=== PATIENT | female | born 1930 | race Caucasian/White ===

== ENCOUNTER 2019-09-09 17:08 | Inpatient (IN) | payer MEDICARE, OTHER ==
[~2019-09-09 17:08] MED LIST: Iopamidol-370 76% 500 ML 1 ML ONE
--- NOTE | 2019-09-09 17:24 | CT ---
CT Brain WO Con: 09/09/2019 12:00 AM CLINICAL HISTORY: Level 1 stroke alert for left-sided weakness. IMAGING TECHNIQUE: Multiple CT images were obtained of the brain without IV contrast. COMPARISON: None. FINDINGS: Motion artifact slightly limits image detail. Brain: No acute infarct or hemorrhage is demonstrated. There is mild chronic small vessel white jasiel er ischemic change. There is mild generalized cerebral atrophy. Ventricles: Normal. No hydrocephalus.. Skull: Intact.. Visualized Paranasal sinuses: Clear.. Mastoid air cells:Clear. Extracranial soft tissues:Normal. IMPRESSION: No acute intracranial abnormality. Findings called to Dr. Colón at 5:20 PM on September 09, 2019.
--- NOTE | 2019-09-09 17:42 | CT ---
CTA of the head with IV contrast and 3-D reformatted imaging. CTA of the neck with IV contrast and 3-D reformatted imaging. INDICATION: Left-sided weakness COMPARISON: CT the brain dated September 09, 2019 FINDINGS: CTA OF THE HEAD WITH CONTRAST: CTA OF THE BRAIN: Right ICA: Patent. Right MCA: There is partially occlusive high-grade stenosis involving the distal right M1 segment bes t seen on image [address] a series of the brain Right BLANE: Patent. ACOM: Patent. Left ICA: Patent. Left MCA: Patent. Left BLANE: Patent. PCOMs: Patent. Vertebral arteries: Patent. Basilar Artery: Patent. facility coordinator: Patent. Incidentals: None. CTA OF THE NECK WITH CONTRAST: Right CCA: Patent. Right ICA: Patent. Right Subclavian: Patent. Right Vertebral Artery: Patent. Left CCA: Patent. Left ICA: Patent. Left Subclavian: Patent. Left Vertebral Artery: Left vertebral artery is dominant. Aerodigestive tract: There is moderate gaseous distention of the esophagus. Parotids/Submandibular/Thyroid glands: Thyroid gland is heterogeneous. Submandibular and parotid gla nds appear within normal limits. Lymph nodes: No pathologically enlarged lymph nodes. Lung Apices: Clear. Bones: No acute osseous abnormality. Incidentals: None. IMPRESSION: 1. Hemodynamically significant stenosis due to a partially occlusive thrombus in the right distal M1 segment. Findings called to Dr. Colón at 5:38 PM on September 09, 2019.
[2019-09-09] MEDS ORDERED: Labetalol HCl 100 MG/20 ML VIAL ONE (17:45)
[2019-09-09 17:52] LABS: #Eosinphils 0.1 thou/uL (0.0-0.7); #Lymphocytes 1.3 thou/uL (1.20-3.40); #Monocytes 0.6 thou/uL (0.11-0.59); #Neutrophils 3.8 thou/uL (1.40-6.50); %Basophils 0.4 % (0.0-1.0); %Eosinophils 1.9 % (0.0-10.0); %Lymphocytes 22.9 % (21.0-51.0); %Monocytes 9.6 % (0.0-10.0); %Neutrophils 65.2 % (42.0-75.0); Hemoglobin 11.5 g/dL (12.0-16.0); Mean Corpuscular HGB CONC 35.3 g/dL (32.0-36.0); Mean Corpuscular Hemoglobin 33.3 pg (27.0-31.0); Mean Corpuscular Volume 94.6 fL (78.0-98.0); Mean Platelet Volume 7.2 fL (7.4-10.4); Platelet Count 195 thou/uL (130-400); Red Blood Cell (RBC) Count 3.44 mill/uL (4.20-5.40); White Blood Cell (WBC) Count 5.8 thou/uL (4.8-10.8)
[2019-09-09 18:01] LABS: PTT 62.7 SEC (22.9-36.1); Prothrombin Time 40.5 SEC (12.0-14.7)
[2019-09-09 18:03] LABS: INR-International Normal Ratio 4.3
[2019-09-09 18:07] LABS: ALT (SGPT) 13 U/L (8-55); AST (SGOT) 20 U/L (5-34); Albumin 3.3 g/dL (3.4-4.8); Alkaline Phosphatase 63 U/L (40-110); Anion Gap 11 mmol/L (10-20); BUN (Urea Nitrogen) 18 mg/dL (9.8-20.1); Bilirubin, Total 0.4 mg/dL (0.2-1.2); Calc. Creatinine Clearance 0 mL/min (70-130); Carbon Dioxide 25 mmol/L (23-31); Chloride 105 mmol/L (98-107); Estimated GFR-MDRD 71; Globulin 2.7 g/dL (2.4-3.5); Glucose 165 mg/dL (83-110); Potassium 3.7 mmol/L (3.5-5.1); Sodium 137 mmol/L (136-145)
--- NOTE | 2019-09-09 18:58 | RAD ---
Chest AP view INDICATION: Left-sided CVA COMPARISON: March 27, 2005 FINDINGS: Lungs:The lungs are clear Cardiac silhouette:There is mild cardiomegaly Pulmonary vasculature:Normal Pleural spaces:No pleural effusion or pneumothorax is demonstrated. Upper abdomen:No abnormality seen. Osseous structures: There is scattered degenerative and osteoarthritic change present. No acute fract ure or subluxation demonstrated. Additional findings:There is a dual-lead pacemaker overlying the left chest wall. IMPRESSION: Mild cardiomegaly without evidence of cardiac decompensation.
--- NOTE | 2019-09-09 20:12 | HP ---
PRIMARY CARE PHYSICIAN: Dr. Redman at [facility]. CHIEF COMPLAINT: Left hand weakness. HISTORY OF PRESENT ILLNESS: Ms. Ramos is a very pleasant 89-year-old female, who has a history of atrial fibrillation and hypertension. She lives independently and about 4:16 pm, she says that she was sitting in her recliner and noticed that she could not use her left hand. She says she tried to work with it for a little bit on her own, but realized it was not getting any better, so she called her granddaughter who was on speed dial. She says her purse was within reach and she called using her cellphone. Her granddaughter called 911 and she was brought to the hospital via EMS. She says she was not sure if her leg was weak as she was too afraid to try to stand up. She also recently had sprained her ankle and her leg was in a boot. Her granddaughter noticed that her voice sounded a little bit different like her mouth was extremely dry and the patient noticed some drooling as well. She denied any chest pain or shortness of breath and no visual changes. She was brought to the ER and a CT scan of the brain was done, which was negative for an acute stroke. A CT angiogram was done, which showed an acute partially occlusive thrombus in the distal M1 segment on the right. Neurosurgery was consulted, but since her symptoms were improving, the decision was made not to try to pursue a thrombectomy. She is being admitted for further treatment. The patient says that about in 2000, she had an episode where she had sudden vision loss in the right eye and she was admitted for a TIA workup. At that time, her vision improved on its own, they did not find any problems at that time and she was discharged. She says that ever since then she has not had any symptoms like this. REVIEW OF SYSTEMS: All systems were reviewed and are negative except for that mentioned in the history of present illness. PAST MEDICAL HISTORY: Significant for atrial fibrillation, history of transient ischemic attack, hypertension. She has a history of macular degeneration as well as tremors. PAST SURGICAL HISTORY: She has had a pacemaker placed. ALLERGIES: CODEINE, WHICH CAUSES NAUSEA WELL CIPRO, BUT SHE DOES NOT REMEMBER THE REACTION. SOCIAL HISTORY: She lives alone. She has 2 children. She walks with a cane or a walker. She is a nonsmoker and nondrinker and as far as code status, she says she does not want to be resuscitated and would like to be a DNAR. FAMILY HISTORY: Significant for cancer and angina in her father and a brother who had Lewy body dementia. CURRENT MEDICATIONS: 1. Warfarin. 2. Digoxin. 3. Primidone. 4. Vitamin D3. 5. Fish oil. 6. Turmeric. 7. vitamin. PHYSICAL EXAMINATION: GENERAL: She is alert and oriented. She appears to be in no acute distress. She is well developed and well nourished. VITAL SIGNS: Blood pressure was 175/82, heart rate 80, respiratory rate of 21, temperature is 97.9. HEENT: Her pupils are equal, round, and reactive to light. Extraocular muscles are intact. Her sclerae anicteric. Throat, there is no erythema, no exudates. NECK: There is no adenopathy, no bruits. LUNGS: Clear to auscultation. There is no wheezing, no rales, no rhonchi. CARDIOVASCULAR: She has a normal S1 and S2. There is no S3 or S4. No murmurs, clicks, or rubs. ABDOMEN: Soft. It is nontender and nondistended. Positive for bowel sounds. No rebound. No guarding. No organomegaly. EXTREMITIES: She has 1+ pedal edema, the left is greater than the right, but no calf tenderness. No joint effusions. NEUROLOGICAL: Her cranial nerves 2 through 12 are intact with the exception of a mild facial droop. Her muscle strength in the left upper extremity is 5/5, but weaker on the left than on the right. 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 On the lower extremity, it is again 5/5 on both the right and the left, but slightly weaker on the left. SKIN AND INTEGUMENT: No skin changes. No rashes. LABORATORY RESULTS: Her white blood cell count is 5.8, hemoglobin 11.5, hematocrit is 32.5, and platelet count is 195. INR is 4.3. Chemistries; sodium is 137, potassium 3.7, chloride 105, CO2 is 25, BUN of 18, creatinine 0.77, glucose is 165. Troponin is 0.011. CT scan of the brain, again there are no acute intracranial abnormalities and CTA of the [place] demonstrated hemodynamically significant stenosis due to partially occlusive thrombus in the right distal M1 segment. EKG is paced rhythm. ASSESSMENT: 1. This is a pleasant 89-year-old female, who presents to the ER with the sudden onset of left upper extremity weakness, likely this is due to a stroke and due to a thrombotic event. She will be admitted to the stroke floor. We will be holding Coumadin due to the supratherapeutic INR, but we will not give vitamin K. There is no evidence of any bleeding and we would like for her INR to slowly drift back toward therapeutic. We will hold off on any aspirin at this time. We will allow for some permissive hypertension and we will also a check an echocardiogram. Monitor her on telemetry. Get a lipid panel and Neurology consult. 2. Hypertension. Again allow permissive hypertension within the first 24 to 48 hours. 3. Atrial fibrillation. Her heart rate is currently stable. It appears to be primarily a paced rhythm and once again, we will allow her INR to slowly drift back toward therapeutic and hold her Coumadin. Otherwise, further recommendations to follow. Job ID: [id number]
[2019-09-09] MEDS ORDERED: Famotidine 20 MG TAB PO SCH (21:00)
[2019-09-09] MEDS ORDERED: hydrALAZINE 20 MG/ML VIAL SLOW IVP PRN (21:18)
[2019-09-09] MEDS ORDERED: Labetalol HCl 100 MG/20 ML VIAL SLOW IVP PRN (21:18)
[2019-09-09] MEDS: Acetaminophen 325 MG TAB PO PRN (21:51)
[2019-09-09 22:29] VITALS: BMI 25.5
[2019-09-10] MEDS: Acetaminophen 325 MG TAB PO PRN ×2 (04:50→20:56)
[2019-09-10 05:15] LABS: #Basophils 0.1 thou/uL (0.0-0.2); #Eosinphils 0.1 thou/uL (0.0-0.7); #Lymphocytes 2.1 thou/uL (1.20-3.40); #Monocytes 0.7 thou/uL (0.11-0.59); #Neutrophils 4.2 thou/uL (1.40-6.50); %Basophils 1.2 % (0.0-1.0); %Eosinophils 1.4 % (0.0-10.0); %Lymphocytes 29.1 % (21.0-51.0); %Monocytes 9.4 % (0.0-10.0); %Neutrophils 58.9 % (42.0-75.0); Hemoglobin 11.6 g/dL (12.0-16.0); Mean Corpuscular HGB CONC 34.1 g/dL (32.0-36.0); Mean Corpuscular Hemoglobin 31.7 pg (27.0-31.0); Mean Corpuscular Volume 93.1 fL (78.0-98.0); Platelet Count 206 thou/uL (130-400); RBC Distribution Width 10.9 % (11.5-14.5); Red Blood Cell (RBC) Count 3.65 mill/uL (4.20-5.40); White Blood Cell (WBC) Count 7.1 thou/uL (4.8-10.8)
[2019-09-10 05:22] LABS: Prothrombin Time 38.8 SEC (12.0-14.7)
[2019-09-10 05:34] LABS: Anion Gap 10 mmol/L (10-20); BUN (Urea Nitrogen) 12 mg/dL (9.8-20.1); Calc. Creatinine Clearance 53 mL/min (70-130); Calcium 9.3 mg/dL (7.8-10.44); Carbon Dioxide 28 mmol/L (23-31); Cardiac Risk 3.8 (Less than 4.5); Chloride 107 mmol/L (98-107); Cholesterol 157 mg/dl (< 200 Desired); Estimated GFR-MDRD 76; Glucose 107 mg/dL (83-110); HDL Cholesterol 41 mg/dL (>60 Neg Risk); LDL Cholesterol, Calculated 95 mg/dL; Potassium 3.6 mmol/L (3.5-5.1); Sodium 141 mmol/L (136-145); Triglycerides 106 mg/dL (Less than 150)
[2019-09-10] MEDS: Digoxin 0.125 MG TAB PO SCH (08:22)
[2019-09-10] MEDS: Famotidine 20 MG TAB PO SCH (08:23)
--- NOTE | 2019-09-10 11:56 | PDOC.HOSPP ---
- Subjective Encounter Date: 09/10/19 Encounter Time: 11:54 Subjective: Ms. Ramos was seen today in follow-up of CVA. She notes that her strength is better in her left hand. She is able to pick up man some items. She still has some trouble making it go where she wants. - Objective Vital Signs & Weight: Vital Signs (12 hours) Temp Pulse Resp BP Pulse Ox 09/10/19 08:22 82 09/10/19 08:00 97.6 F 80 14 175/79 H 96 09/10/19 03:50 97.6 F 81 18 188/81 H 99 09/10/19 00:00 95 Weight Weight 139 lb 9.6 oz Result Diagrams: 09/10/19 05:02 09/10/19 05:02 Hospitalist ROS - Medication Medications: Active Medications Generic Name Dose Route Start Last Admin Trade Name Freq PRN Reason Stop Dose Admin Acetaminophen 650 mg 09/09/19 21:18 09/10/19 04:50 Tylenol PO 650 mg Q4H PRN Administration Headache/Fever/Mild Pain (1-3) Cholecalciferol 1,000 units 09/10/19 09:00 09/10/19 08:22 Vitamin D3 PO 1,000 units DAILY SMITH Administration Digoxin 0.125 mg 09/10/19 09:00 09/10/19 08:22 Lanoxin PO 0.125 mg DAILY SMITH Administration Famotidine 20 mg 09/10/19 09:00 09/10/19 08:23 Pepcid PO 20 mg DAILY SMITH Administration - Exam Eye: PERRL Heart: RRR, no murmur, no gallops, no rubs, normal peripheral pulses Respiratory: CTAB, no wheezes, no rales, no ronchi, normal chest expansion Gastrointestinal: soft, non-tender, non-distended, normal bowel sounds, no palpable masses, no hepatomegaly Extremities: no cyanosis, no clubbing, no edema Neurological: cranial nerve grossly intact (Left upper extremity weakness, improved from last night, improved pot fluxer strength) Musculoskeletal: normal tone Psychiatric: normal affect, normal behavior, A&O x 3 Hosp A/P (1) Acute CVA (cerebrovascular accident) Code(s): I63.9 - CEREBRAL INFARCTION, UNSPECIFIED Status: Acute (2) Atrial fibrillation Code(s): I48.91 - UNSPECIFIED ATRIAL FIBRILLATION Status: Chronic - Plan * Acute CVA with left upper extremity weakness- continue PT/OT * AFIB- she is on coumadin- her INR is supratherapeutic- will continue to hold * She is unable to have an MRI * Echo has been cancelled, she had a recent one at [facility], and this was reviewed via- "my chart" EF was normal- approximately 55%, and Left atrium was mildly enlarged. * she will likely need inpatient Rehab- so will consult case management to screen.
--- NOTE | 2019-09-10 13:24 | CON ---
DATE OF TELEMEDICINE CONSULTATION: 09/10/2019 CHIEF COMPLAINT: Left arm weakness. HISTORY OF PRESENT ILLNESS: The patient is an 89-year-old lady with left hand weakness. The patient reports her strength returned somewhat. She had tingling at the tips of her fingers. She also had mild slurred speech. There was no weakness of the left leg. She had a prior TIA. She is not on aspirin. She is on Coumadin. She was seen by Dr. Myles at the last admission. She also has a cardiac pacemaker at this time. PREVIOUS MEDICAL HISTORY: Significant for TIA in the past, cardiac dysrhythmia requiring pacemaker with atrial fibrillation. She has macular degeneration and essential tremor. She also has hypertension. SURGICAL HISTORY: Pacemaker implantations. ALLERGIES: SHE IS ALLERGIC TO CODEINE, WHICH CAUSES NAUSEA AND ALLERGIC TO CIPRO WELL. SOCIAL HISTORY: She lives alone. She has 2 children who look after her as well. She walks with a cane or walker. Nonsmoker. No alcohol. FAMILY HISTORY: Her father had cancer, at 82. Brother at 90 from Lewy body dementia. Mother at 97. She fell and broke her hip. Father and brother had tremor. Her children are 68 and 65, do not have tremor. MEDICATIONS: At home, she is on 1. Coumadin. 2. Digoxin. 3. Primidone. 4. Vitamin D3. 5. Fish oil. 6. Turmeric. 7. vitamins. REVIEW OF SYSTEMS: PULMONARY: Negative for cough or shortness of breath. GI: Negative for any nausea, vomiting, or diarrhea. CARDIAC: Negative for chest pain, but positive for atrial fibrillation. GENITOURINARY: Negative for any bladder problem. DERMATOLOGIC: Negative for any skin rash. LABORATORY DATA: White count 7.1, hemoglobin 11.6, hematocrit 34.0, and platelet count 206. Chemistry: Sodium 141, potassium 3.6, chloride 107, bicarb 28, BUN 12, creatinine 0.72, glucose 107. Lipid profile is within normal limits. Coagulation: PT 38.8, INR is 4, PTT 62.7. PHYSICAL EXAMINATION: GENERAL: Well-built, well-nourished, elderly lady who is comfortable in bed and surrounded by family. VITAL SIGNS: Temperature 97.6, pulse 80, respiratory rate 16, O2 sats 98%, blood pressure 166/64. CHEST: Clear vesicular breathing. CARDIOVASCULAR: S1, S2 heard. No murmurs. ABDOMEN: Soft and nontender. No organomegaly noted NEUROLOGICAL: Higher intellectual functions. Normal orientation to time, place , and person. Appropriate conversation. Cranial nerves 2 to 12: Pupils 2 mm, reactive to light bilaterally. Normal sensation of face bilaterally. No facial asymmetry noted. Tongue midline. No atrophy noted. Normal hearing bilaterally. Normal elevation of palate. Motor exam: Bulk normal. Tone normal. Strength 5 /5 throughout except for the left upper extremity. In the left upper extremity she has mild weakness of the left deltoid 4/5. Muscle groups tested are deltoid, biceps , triceps, wrist extension and flexion, finger extension and flexion, and iliopsoas, hamstrings, quadriceps, ankle dorsiflexion and plantar flexion bilaterally. Deep tendon reflexes 3+. Of note, in motor examination we also found wasting of the small muscles of the hand in the left upper extremity. Cerebellar normal. Sensory normal. IMPRESSION: The patient is an elderly lady who developed left hand weakness and comes into the hospital. Her CT of the head did not show any acute strokes and her CT angiogram was reviewed and she had a slight narrowing in M1 segment, stenosis on the right side and examination shows left arm weakness with small muscle wasting of the left hand and I do think this lady might have had a small cerebrovascular accident but we also need to rule out any peripheral issues such as C-spine stenosis. RECOMMENDATIONS: I am not sure if the pacemaker is compatible with an MRI and MRI will clarify whether she had an acute stroke. If MRI is not possible to obtain, please consider having her see Dr. Myles as outpatient and he can do EMG nerve conduction studies at the later stage. For stroke prophylaxis please add aspirin 81 mg. Job ID: [id number] [facility]
[2019-09-10] MEDS ORDERED: hydrALAZINE 20 MG/ML VIAL SLOW IVP PRN (16:27)
[2019-09-10] MEDS ORDERED: Labetalol HCl 100 MG/20 ML VIAL SLOW IVP PRN (16:28)
[2019-09-10] MEDS ORDERED: Amlodipine 5 MG TAB PO SCH (16:30)
[2019-09-10] MEDS: Primidone 50 MG TAB PO SCH (20:52)
[2019-09-11 05:38] LABS: INR-International Normal Ratio 2.8; Prothrombin Time 29.5 SEC (12.0-14.7)
[2019-09-11] MEDS: Famotidine 20 MG TAB PO SCH (08:56)
[2019-09-11] MEDS: Amlodipine 5 MG TAB PO SCH (08:56)
[2019-09-11] MEDS: Digoxin 0.125 MG TAB PO SCH (09:00)
[2019-09-11] MEDS: Acetaminophen 325 MG TAB PO PRN (11:56)
--- NOTE | 2019-09-11 14:19 | PDOC.HOSPP ---
- Subjective Encounter Date: 09/11/19 Encounter Time: 14:17 Subjective: Ms. Ramos was seen today in follow-up of acute CVA with Left sided weakness. She notes improved strength in her hand. No new complaints. - Objective Vital Signs & Weight: Vital Signs (12 hours) Temp Pulse Pulse Pulse Resp BP BP 09/11/19 11:40 97.5 F L 78 20 09/11/19 09:57 80 81 164/76 H 09/11/19 09:00 85 09/11/19 08:56 78 143/74 H 09/11/19 07:45 97.4 F L 78 20 09/11/19 04:00 98.0 F 80 16 BP BP Pulse Ox 09/11/19 11:40 166/74 H 97 09/11/19 09:57 206/93 H 09/11/19 09:00 09/11/19 08:56 09/11/19 07:45 143/74 H 97 09/11/19 04:00 144/98 H 97 Weight Weight 139 lb 9.6 oz I&O: 09/10/19 09/11/19 09/12/19 06:59 06:59 06:59 Intake Total 720 Output Total 2500 Balance -1780 Result Diagrams: 09/10/19 05:02 09/10/19 05:02 Hospitalist ROS - Medication Medications: Active Medications Generic Name Dose Route Start Last Admin Trade Name Freq PRN Reason Stop Dose Admin Acetaminophen 650 mg 09/09/19 21:18 09/11/19 11:56 Tylenol PO 650 mg Q4H PRN Administration Headache/Fever/Mild Pain (1-3) Amlodipine Besylate 5 mg 09/11/19 09:00 09/11/19 08:56 Norvasc PO 5 mg DAILY SMITH Administration Cholecalciferol 1,000 units 09/10/19 09:00 09/11/19 08:56 Vitamin D3 PO 1,000 units DAILY SMITH Administration Digoxin 0.125 mg 09/10/19 09:00 09/11/19 09:00 Lanoxin PO 0.125 mg DAILY SMITH Administration Famotidine 20 mg 09/10/19 09:00 09/11/19 08:56 Pepcid PO 20 mg DAILY SMITH Administration Hydralazine HCl 10 mg 09/10/19 16:27 09/10/19 19:06 Apresoline SLOW IVP 10 mg Q4H PRN Administration SBP Greater Than 170 Primidone 25 mg 09/10/19 21:00 09/10/19 20:52 Mysoline PO 25 mg HS SMITH Administration Sodium Chloride 10 ml 09/09/19 21:18 09/10/19 20:53 Flush - Normal Saline IVF 10 ml PRN PRN Administration Saline Flush - Exam Eye: PERRL Heart: RRR, no murmur, no gallops, no rubs, normal peripheral pulses Respiratory: CTAB, no wheezes, no rales, no ronchi, normal chest expansion Gastrointestinal: soft, non-tender, non-distended, normal bowel sounds, no palpable masses, no hepatomegaly Extremities: no cyanosis, no edema Neurological: no new deficit (+ mild left upper extremity weakness) Hosp A/P (1) Acute CVA (cerebrovascular accident) Code(s): I63.9 - CEREBRAL INFARCTION, UNSPECIFIED Status: Acute (2) Atrial fibrillation Code(s): I48.91 - UNSPECIFIED ATRIAL FIBRILLATION Status: Chronic - Plan * Acute CVA with left upper extremity weakness- continue PT/OT * AFIB- she is on coumadin-INR is now 2.8- will give a low dose of coumadin in hopes that she will not drop below therapeutic * HTN-blood pressure is elevated- will add Amlodipine * Awaiting Rehab screen
[2019-09-11] MEDS ORDERED: Warfarin Sodium 2 MG TAB PO SCH ×2 (18:45→19:00)
[2019-09-11] MEDS: Primidone 50 MG TAB PO SCH (21:33)
[2019-09-12 04:52] LABS: Prothrombin Time 22.2 SEC (12.0-14.7)
[2019-09-12] MEDS: TURMERIC PO SCH ×2 (07:13→07:18)
[2019-09-12] MEDS: Digoxin 0.125 MG TAB PO SCH (08:37)
[2019-09-12] MEDS: Amlodipine 5 MG TAB PO SCH (08:39)
[2019-09-12] MEDS: Famotidine 20 MG TAB PO SCH (08:40)
--- NOTE | 2019-09-12 12:46 | PDOC.HOSPP ---
- Subjective Encounter Date: 09/12/19 Encounter Time: 12:45 Subjective: Ms. Ramos was seen today in followup of acute CVA. She notes that the strength in her hand has improved. She still has difficulty placing it where she wants. - Objective Vital Signs & Weight: Vital Signs (12 hours) Temp Pulse Pulse Pulse Resp BP BP 09/12/19 11:33 98.0 F 80 14 09/12/19 11:30 80 141/67 H 09/12/19 09:45 80 80 172/77 H 09/12/19 08:39 80 147/72 H 09/12/19 08:37 92 09/12/19 07:38 97.8 F 80 14 09/12/19 04:14 80 09/12/19 03:10 97.9 F 82 18 BP BP Pulse Ox Pulse Ox 09/12/19 11:33 141/67 H 97 09/12/19 11:30 97 09/12/19 09:45 148/69 H 09/12/19 08:39 09/12/19 08:37 09/12/19 07:38 147/72 H 97 09/12/19 04:14 148/82 H 09/12/19 03:10 173/79 H 98 Weight Weight 139 lb 9.6 oz I&O: 09/11/19 09/12/19 09/13/19 06:59 06:59 06:59 Intake Total 720 120 Output Total 2500 1100 Balance -2970 980 Result Diagrams: 09/10/19 05:02 09/10/19 05:02 Hospitalist ROS - Medication Medications: Active Medications Generic Name Dose Route Start Last Admin Trade Name Evan PRN Reason Stop Dose Admin Acetaminophen 650 mg 09/09/19 21:18 09/11/19 11:56 Tylenol PO 650 mg Q4H PRN Administration Headache/Fever/Mild Pain (1-3) Amlodipine Besylate 5 mg 09/11/19 09:00 09/12/19 08:39 Norvasc PO 5 mg DAILY SMITH Administration Cholecalciferol 1,000 units 09/10/19 09:00 09/12/19 08:40 Vitamin D3 PO 1,000 units DAILY SMITH Administration Digoxin 0.125 mg 09/10/19 09:00 09/12/19 08:37 Lanoxin PO 0.125 mg DAILY SMITH Administration Famotidine 20 mg 09/10/19 09:00 09/12/19 08:40 Pepcid PO 20 mg DAILY SMITH Administration Hydralazine HCl 10 mg 09/10/19 16:27 09/10/19 19:06 Apresoline SLOW IVP 10 mg Q4H PRN Administration SBP Greater Than 170 Primidone 25 mg 09/10/19 21:00 09/11/19 21:33 Mysoline PO 25 mg HS SMITH Administration - Exam Eye: PERRL Heart: RRR, no murmur, no gallops, no rubs, normal peripheral pulses Respiratory: CTAB, no wheezes, no rales, no ronchi, normal chest expansion, no tachypnea, normal percussion Gastrointestinal: soft, non-tender, non-distended, normal bowel sounds, no palpable masses, no hepatomegaly Extremities: no cyanosis, no edema Hosp A/P (1) Acute CVA (cerebrovascular accident) Code(s): I63.9 - CEREBRAL INFARCTION, UNSPECIFIED Status: Acute (2) Atrial fibrillation Code(s): I48.91 - UNSPECIFIED ATRIAL FIBRILLATION Status: Chronic - Plan * Acute CVA with left upper extremity weakness- continue PT/OT She is slowly improving * AFIB- she is on coumadin-INR is now 2.0- will re-start her home dose of coumadin, and add aspirin as recommended by the Neurologist * Will also re-start Lipitor , and Fish oil * HTN-blood pressure is trending down- continue Amlodipine * Awaiting Rehab screen
--- NOTE | 2019-09-12 13:44 | PQF ---
LAKESHIA BENNETT TONI MD [id number] CLINICAL DOCUMENTATION IMPROVEMENT CLARIFICATION FORM: ICD-10 Updated PLEASE DO AN ADDENDUM TO THE PROGRESS NOTE WITH ANY DOCUMENTATION UPDATES OR ADDITIONS AND CARRY THROUGH TO DC SUMMARY. THANK YOU. DATE: 09/12/19 ATTN: Dr. Rivas Please exercise your independent, professional judgment in responding to the clarification form. Clinical indicators are provided on the bottom of this form for your review Please check appropriate box(s): [ ] Coagulopathy [ X ] Coagulopathy due to Coumadin [ ] Other diagnosis [ ] Unable to determine In addition, please specify: Present on Admission (POA): [ X ] Yes [ ] No [ ] Unable to determine For continuity of documentation, please document condition throughout progress notes and discharge summary. Thank You. CLINICAL INDICATORS - SIGNS / SYMPTOMS / LABS / RESULTS AND LOCATION IN EMR "Supratherapeutic INR" per 09/09 H&P(Rob) 09/09 INR 4.3; 09/10 INR 4.0; 09/11 INR 2.8; 09/12 INR 2.0 per labs RISK FACTORS / RESULTS AND LOCATION IN EMR "Atrial fibillation" per 09/09 H&P (Rob) TREATMENTS / RESULTS AND LOCATION IN EMR Hold Coumadin 09/09 -09/11 per orders Daily INR 09/09 to date per orders (This form is maintained as a part of the permanent medical record) 2014 [email or web address], [email or web address] All Rights Reserved Leah Hale RN, BSN, CCDS [email or web address]
[2019-09-12 16:14] VITALS: BP 154/69; TEMP 98.2
[2019-09-12] MEDS ORDERED: Warfarin Sodium 3 MG TAB PO SCH (17:00)
[2019-09-12] MEDS ORDERED: Warfarin Sodium 2 MG TAB PO SCH (17:00)
[2019-09-12] MEDS: Primidone 50 MG TAB PO SCH (20:05)
--- NOTE | 2019-09-13 04:20 | DIS ---
DATE OF ADMISSION: 09/09/2019 DATE OF DISCHARGE: 09/12/2019 PRIMARY CARE PHYSICIAN: Dr. Tong Redman. DISCHARGE DISPOSITION: To inpatient rehab. DISCHARGE DIAGNOSES: 1. Acute cerebrovascular accident with left-sided left arm weakness. 2. Atrial fibrillation. 3. Hypertension. 4. History of macular degeneration. 5. Benign essential tremor. DISCHARGE MEDICATIONS: Include; 1. Aspirin 81 mg daily. 2. Lipitor 40 mg daily. 3. Norvasc 5 mg p.o. daily. 4. Coumadin 4.5 mg daily except for Mondays and Wednesdays, which is 3 mg. 5. Turmeric extract one tablet daily. 6. Primidone 25 mg at bedtime. 7. Fish oil 1000 mg p.o. daily. 8. Digoxin 0.125 mg p.o. daily. 9. Vitamin D3 at 1000 units p.o. daily. PROCEDURES DONE DURING THE ADMISSION: The patient had a CT scan of the brain which was negative for any acute intracranial abnormalities. The patient had a CT of the [place] angiogram showing a partially-occlusive thrombus in the right distal M1 segment. CODE STATUS: Full code. ALLERGIES: TO CIPROFLOXACIN AND CODEINE. HOSPITAL COURSE: Ms. Ramos is a pleasant 89-year-old female who presented to the emergency room with the acute onset of left upper extremity weakness. She was evaluated in the ER and found to have a partially-occluded thrombus. She was outside of the window of tPA and also she had a coagulopathy with an INR of 4.3, which disqualified her for tPA. She did not want thrombectomy as well and since her symptoms are improving, this was not pursued. She was seen by Neurology during her hospital stay and it was recommended that we add a low-dose aspirin once her INR had improved, which was done. She continued to show some improvement during her hospital stay and was able to be discharged to inpatient rehab on 09/12/2019. She had some strain in her left ankle and this is why rehab was thought to be more appropriate than home with physical therapy. Job ID: [id number]
[2019-09-13] MEDS ORDERED: Aspirin 81 mg Enteric Coated Tablet PO SCH (09:00)
[2019-09-13] MEDS ORDERED: Fish Oil 1,000 MG CAP PO SCH (09:00)
[2019-09-13] MEDS ORDERED: Warfarin Sodium 3 MG TAB PO SCH (17:00)
== END 2019-09-12 20:20 | DRG 65 ==
LOC: ERS 17:08 → 2SE 18:51
PROVIDERS: ADMIT Internal Medicine; ATTEND Internal Medicine
DX: I63.311 Cerebral infarction due to thrombosis of right middle cerebral artery (principal); D68.8 Other specified coagulation defects; I48.91 Unspecified atrial fibrillation; R29.810 Facial weakness; I10 Essential (primary) hypertension; G83.24 Monoplegia of upper limb affecting left nondominant side; H35.30 Unspecified macular degeneration; R47.81 Slurred speech; G25.0 Essential tremor; Z95.0 Presence of cardiac pacemaker; Z79.01 Long term (current) use of anticoagulants; Z86.73 Personal history of transient ischemic attack (TIA), and cerebral infarction without residual deficits; Z88.1 Allergy status to other antibiotic agents; Z88.8 Allergy status to other drugs, medicaments and biological substances; T45.515A Adverse effect of anticoagulants, initial encounter
CPT/HCPCS: 36415; 70450; 70496; 70498; 71045; 80048; 80053; 80061; 84484; 85025; 85610; 85730; 93005; 96374; 99292; J0360; J2997; Q9967